=== PATIENT | male | born 1970 | race Hispanic/Latino ===

== ENCOUNTER 2017-12-24 06:22 | Emergency (ER) | payer OTHER ==
[2017-12-24] MEDS: DOXYCYCLINE HYCLATE 100 MG TAB PO (07:30)
== END 2017-12-24 07:41 | disposition home or self-care (01) ==
LOC: M ED 06:22
DX: S21.151A Open bite of right front wall of thorax without penetration into thoracic cavity, initial encounter (principal); W57.XXXA Bitten or stung by nonvenomous insect and other nonvenomous arthropods, initial encounter; Y92.9 Unspecified place or not applicable; Y93.9 Activity, unspecified; Y99.9 Unspecified external cause status; I10 Essential (primary) hypertension; E78.5 Hyperlipidemia, unspecified; Z79.899 Other long term (current) drug therapy; Z88.8 Allergy status to other drugs, medicaments and biological substances
CPT/HCPCS: 99282

== ENCOUNTER → 2022-11-23 | Outpatient (CLI) | payer OTHER ==
[~2022-11-23] MED LIST: CHOLESTEROL MED; METO1TAB32 PO
== END ==
LOC: M SOG 11:26
PROVIDERS: ATTEND Orthopaedic Surgery
DX: M19.012 Primary osteoarthritis, left shoulder (principal)